=== PATIENT | male | born 1985 | race Caucasian/White ===

== ENCOUNTER 2022-01-10 08:17 | Emergency (ER) | payer OTHER, SELFPAY ==
[2022-01-10 08:23] VITALS: BP 132/74; PULSE 99; RESP 14; TEMP 37.5; O2SAT 98
--- NOTE | 2022-01-10 08:23 | ED.SKABFB ---
HPI - Skin/Abscess/Foreign Bdy General Chief complaint: Skin/Abscess/Foreign Body Stated complaint: rash all over Time Seen by Provider: 01/10/22 08:18 Source: patient and RN notes reviewed History of Present Illness HPI narrative: Patient is a 36-year-old male who presents the urgent care with complaints of a rash all over . Patient states that rash started 2 weeks ago on his left forearm and has now spread to bilateral arms, legs and his face. Patient states he has been using Benadryl [id number], hydrocortisone cream and antiitch cream. No other acute complaints. No acute distress noted. Patient aware of the plan of care. Some parts of this dictation were generated by voice recognition software and may contain typographical and/or grammatical inaccuracies. Related Data Home Medications Medication Instructions Recorded Confirmed sertraline mg 01/10/22 Allergies Allergy/AdvReac Type Severity Reaction Status Date / Time cefaclor Allergy Unknown Verified 06/12/19 11:39 ALL NARCOTIC AdvReac Intermediate STATES Uncoded 06/12/19 11:39 SEVERE N/V Review of Systems Review of Systems: CONSTITUTIONAL: Denies fever, chills, or sweats. EYES: Denies visual changes, redness, or discharge. ENT: Denies rhinorrhea, congestion, sore throat, or otalgia. CARDIOVASCULAR: Denies chest pain, palpitations, or edema. RESPIRATORY: Denies cough or dyspnea. GASTROINTESTINAL: Denies abdominal pain, nausea, vomiting, or diarrhea. GENITOURINARY: Denies dysuria or hematuria. SKIN: Reports of diffuse pruritic rash to bilateral arms, legs and moving to the face MUSCULOSKELETAL: Denies back pain, joint pain, or myalgia. NEUROLOGIC: Denies headache, numbness, or weakness. All other systems reviewed are negative, except as documented in HPI. PMFSH Comments At the time of my signature, I reviewed and agree with the nursing past medical, surgical, social, and family history. There is no relevant family history pertinent to the patient complaint. Exam Narrative: GENERAL: This is a well-nourished, well-developed patient, in no apparent distress. HEAD: normocephalic, atraumatic. EYES: PERRL. Sclera clear/white. Vision is grossly intact. EARS: External ears normal NOSE: External nose normal with no obvious nasal discharge, nares without redness, no rhinorrhea. THROAT: Mucous membranes moist NECK: Neck supple CARDIOVASCULAR: Regular rate and rhythm without murmurs, gallops, or rubs. RESPIRATORY: Clear to auscultation. Breath sounds equal bilaterally. No wheezes, rales, or rhonchi. SKIN: Raised erythemic pruritic scattered vesicular dermatitis noted to bilateral forearms, bilateral lower legs, and behind the left ear. Good texture and turgor. NEURO: awake, alert, and oriented to person, place and time. There were no obvious focal neurologic abnormalities. EXTREMITIES: No clubbing, cyanosis, or edema. Course Course Level of Care: Express Care Visit Vital Signs Vital signs: Vital Signs Temperature 99.5 F 01/10/22 08:23 Pulse Rate 99 01/10/22 08:23 Respiratory Rate 14 01/10/22 08:23 Blood Pressure 132/74 01/10/22 08:23 Pulse Oximetry 98 01/10/22 08:23 Temperature 99.5 F 01/10/22 08:27 Pulse Rate 99 01/10/22 08:27 Respiratory Rate 14 01/10/22 08:27 Blood Pressure 132/74 01/10/22 08:27 Pulse Oximetry 98 01/10/22 08:27 Reviewed MDM - Skin/Abscess/Foreign Bdy MDM Narrative Medical decision making narrative: Advised patient complete the oral steroid regimen as prescribed. Be sure to eat and drink with the medication. Do not take prior to bedtime, it will keep you up at night. Use the prescription cream to the affected areas avoiding the groin, underarms and near the eyes. May continue a daily antihistamine such as Claritin or Zyrtec in conjunction with intermittent Benadryl as needed. Be aware that hot showers may exacerbate the rash, which is normal. Follow-up with your PCP within 2 to 5 days or for
[2022-01-10 08:27] VITALS: BP 132/74; PULSE 99; RESP 14; TEMP 37.5; O2SAT 98
== END 2022-01-10 08:46 | disposition home or self-care (01) ==
PROVIDERS: Emergency Provider Nurse Practitioner Family; PCP Family Medicine
DX: L25.9 Unspecified contact dermatitis, unspecified cause (principal)
CPT/HCPCS: 99213; G0463

== ENCOUNTER 2022-08-02 08:04 | Emergency (ER) | payer OTHER, SELFPAY ==
[2022-08-02 08:18] VITALS: BP 127/80; PULSE 84; RESP 20; TEMP 36.7; O2SAT 100
--- NOTE | 2022-08-02 08:19 | ED.GENADULT ---
HPI - General Adult General Chief complaint: Upper Respiratory Infection Stated complaint: Sore Throat Source: patient Mode of arrival: ambulatory Limitations: no limitations History of Present Illness HPI narrative: Patient presents for evaluation of sore throat since yesterday. He has had strep in the past and this feels similar. He believes he may have had a fever but did not check his temperature. No otalgia, chills, nausea, vomiting, diarrhea, cough, shortness of breath or other symptoms. No recent sick contacts. He had COVID last year. He has received COVID vaccination. He does not smoke. He has not taken any medication to assist with his symptomss. No additional complaints or concerns. Related Data Home Medications Medication Instructions Recorded Confirmed cyclobenzaprine 5 mg tablet mg 08/02/22 dextroamphetamine-amphetamine ER PO 08/02/22 10 mg 24hr capsule,extend release fluoxetine 20 mg capsule mg 08/02/22 Allergies Allergy/AdvReac Type Severity Reaction Status Date / Time cefaclor Allergy Unknown Verified 06/12/19 11:39 ALL NARCOTIC AdvReac Intermediate STATES Uncoded 06/12/19 11:39 SEVERE N/V Review of Systems Review of Systems: CONSTITUTIONAL: Reports subjective fever. Denies chills or sweats. EYES: Denies visual changes, redness, or discharge. ENT: Reports sore throat. Denies rhinorrhea, congestion, or otalgia. CARDIOVASCULAR: Denies chest pain, palpitations, or edema. RESPIRATORY: Denies cough or dyspnea. GASTROINTESTINAL: Denies abdominal pain, nausea, vomiting, or diarrhea. GENITOURINARY: Denies dysuria or hematuria. SKIN: Denies rash or itching. MUSCULOSKELETAL: Denies back pain, joint pain, or myalgia. NEUROLOGIC: Denies headache, numbness, dizziness, or weakness. PSYCHIATRIC: Denies anxiety or depression. [facility] Past Medical History Medical History (Updated 08/02/22 @ 08:36 by Natanael Ortiz, JI, SAYRA) No pertinent past medical history Surgical History Surgical History (Updated 08/02/22 @ 08:22 by JI Whitfield, SAYRA) History of appendectomy Family History Family History Mother Family history non-contributory Social History Social History Smoking status: Never smoker Alcohol intake: never Substance use: never Living arrangements: with family Gender identity (if verbalized by the patient): Male Sexual Orientation (if Verbalized by the Patient): Straight or Heterosexual Spiritual care concerns: No Exam Narrative: GENERAL: Well-appearing, well-nourished, and in no acute distress. HEAD: Normocephalic, atraumatic. EYES: PERRLA and EOMI. ENT: Nares clear, no rhinorrhea or epistaxis. Mucous membranes moist. There is posterior pharyngeal erythema without exudate. Uvula is midline. Bilateral TMs pearly roque nonbulging NECK: Supple. No adenopathy or masses. No carotid bruits or JVD CHEST: Clear to auscultation. No respiratory distress. No wheezes rales or rhonchi HEART: Regular rate and rhythm. No murmur heard. Normal peripheral pulses. ABDOMEN: Soft, nontender, nondistended, normal active bowel sounds. EXTREMITIES: Normal range of motion. No edema. SKIN: Warm, dry, no rash. NEURO: No focal deficits. Alert and oriented x3. PSYCH: Normal mood and affect. Course Course Emergency Course: This is a 37-year-old male who presented for evaluation of a sore throat. Rapid strep was negative. However he has a history of strep and this feels similar. We will treat with amoxicillin. Follow-up outpatient for further evaluation and treatment and go to the ER for worsening symptoms. Patient in agreement with plan of care. Level of Care: Express Care Visit Vital Signs Vital signs: Vital Signs Temperature 36.7 C 08/02/22 08:18 Pulse Rate 84 08/02/22 08:18 Respiratory Rate 20 08/02/22 08:18 Blood Pressure 127/80 1
== END 2022-08-02 08:48 | disposition home or self-care (01) ==
PROVIDERS: Emergency Provider Nurse Practitioner; PCP Family Medicine
DX: J02.9 Acute pharyngitis, unspecified (principal)
CPT/HCPCS: 87081; 87880; 99213; G0463

== ENCOUNTER 2022-08-19 12:46 | Emergency (ER) | payer OTHER, SELFPAY ==
[2022-08-19 12:50] VITALS: BP 118/74; PULSE 83; RESP 20; TEMP 36.7; O2SAT 98
--- NOTE | 2022-08-19 12:51 | ED.URI ---
HPI - URI/Sore Throat General Chief Complaint: Upper Respiratory Infection Stated Complaint: sore throat Time Seen by Provider: 08/19/22 12:51 Source: patient and RN notes reviewed History of Present Illness HPI Narrative: patient is a 37-year-old male who presents to the Urgent Care with his spouse with complaints of severe sore throat. Patient states that he was seen at our facility a couple weeks ago and given antibiotics for pharyngitis. Patient's strep swab and culture will be ruled negative. Patient states that he woke up again with a sore throat on Thursday. Denies any ill exposures. States that he did have [id number] a few weeks ago after his daughter was diagnosed however he never had sores in the mouth. Patient has not been taking anything [id number] for his symptoms. States it is very painful to swallow. No other acute complaints. No acute distress noted. Patient aware of the plan of care. Some parts of this dictation were generated by voice recognition software and may contain typographical and/or grammatical inaccuracies. Related Data Home Medications Medication Instructions Recorded Confirmed fluoxetine 20 mg capsule 20 mg DAILY 08/02/22 08/19/22 Allergies Allergy/AdvReac Type Severity Reaction Status Date / Time cefaclor Allergy Unknown Unknown Verified 08/19/22 13:04 ALL NARCOTIC AdvReac Intermediate STATES Uncoded 08/19/22 13:04 SEVERE N/V Review of Systems Review of Systems: CONSTITUTIONAL: Denies fever, chills, or sweats. EYES: Denies visual changes, redness, or discharge. ENT: Denies rhinorrhea, congestion, Otalgia. Reports a severe sore throat CARDIOVASCULAR: Denies chest pain, palpitations, or edema. RESPIRATORY: Denies cough or dyspnea. GASTROINTESTINAL: Denies abdominal pain, nausea, vomiting, or diarrhea. GENITOURINARY: Denies dysuria or hematuria. SKIN: Denies rash or itching. MUSCULOSKELETAL: Denies back pain, joint pain, or myalgia. NEUROLOGIC: Denies headache, numbness, or weakness. All other systems reviewed are negative, except as documented in HPI. [facility] Past Medical History Medical History (Updated 08/19/22 @ 13:26 by JI Camacho) No pertinent past medical history Surgical History Surgical History (Updated 08/02/22 @ 08:22 by Natanael Ortiz [facility], ) History of appendectomy Family History Family History Mother Family history non-contributory Social History Social History Smoking status: Never smoker Alcohol intake: never Substance use: never Gender identity (if verbalized by the patient): Male Sexual Orientation (if Verbalized by the Patient): Straight or Heterosexual Spiritual care concerns: No Comments At the time of my signature, I reviewed and agree with the nursing past medical, surgical, social, and family history. There is no relevant family history pertinent to the patient complaint. Exam Narrative: GENERAL: This is a well-nourished, well-developed patient, in no apparent distress. HEAD: normocephalic, atraumatic. EYES: PERRL. Sclera clear/white. Vision is grossly intact. EARS: External ears normal, auditory canals clear and without drainage, TMs normal without perforation. Hearing grossly intact. NOSE: External nose normal with no obvious nasal discharge, nares without redness, no rhinorrhea. THROAT: Mucous membranes moist, mild erythema noted to posterior oropharynx with mild postnasal drainage. Blistering ulcerations to the posterior soft palate NECK: Neck supple, mild bilateral nontender submandibular lymphadenopathy CARDIOVASCULAR: Regular rate and rhythm without murmurs, gallops, or rubs. RESPIRATORY: Clear to auscultation. Breath sounds equal bilaterally. No wheezes, rales, or rhonchi. GASTROINTESTINAL: Abdomen soft, non-tender, nondistended. Bowel sounds are active. No hepato
== END 2022-08-19 13:38 | disposition home or self-care (01) ==
PROVIDERS: Emergency Provider Nurse Practitioner Family; PCP Family Medicine
DX: J02.9 Acute pharyngitis, unspecified (principal)
CPT/HCPCS: 87081; 87880; 99213; G0463